=== PATIENT | male | born 1960 | race Caucasian/White ===

== ENCOUNTER 2016-06-18 10:15 | Inpatient (IN) | payer MEDICAID ==
[~2016-06-18] VITALS: Ht 175.3 cm; Wt 118.4 kg
[2016-06-18] MEDS ORDERED: SODIUM CHLORIDE 0.9% 1,000 ML IV ONE (10:27)
[2016-06-18] MEDS ORDERED: ASPirin 81 mg TAB PO ONE ×2 (10:30→15:15)
[2016-06-18] MEDS ORDERED: cloNIDine HCL 0.1 MG TAB PO ONE (11:00)
[2016-06-18] MEDS ORDERED: FUROSEMIDE 40 MG/4 ML VIAL IV ONE ×2 (11:00→15:30)
[2016-06-18 11:02] LABS: Basophils # (auto) 0 uL; Basophils % (auto) 0.3 % (0.0-2.0); Eosinophils # (auto) 0.2 uL; Eosinophils % (auto) 1.5 % (0.0-7.0); Hematocrit 47.5 % (41.0-53.0); Hemoglobin 15.9 g/dL (13.5-17.5); Lymphocytes # (auto) 2.3 uL; Lymphocytes % (auto) 15.3 % (10.0-50.0); Mean Corpuscular Hemoglobin 30.1 pg (28.0-32.0); Mean Corpuscular Hgb Conc. 33.4 g/dL (32.0-36.0); Mean Corpuscular Volume 90.2 fL (80.0-100.0); Mean Platelet Volume 9.3 fL (7.4-10.4); Monocytes # (auto) 0.8 uL; Monocytes % (auto) 5.5 % (0.0-12.0); Neutrophils # (auto) 11.7 uL; Neutrophils % (auto) 77.4 % (37.0-80.0); Platelet Count (auto) 386 10^3/uL (140-450); Red Cell Distribution Width 16.1 % (11.6-16.0); White Blood Cell 15.1 10^3/uL (4.4-10.8)
[2016-06-18 11:26] LABS: INR 0.98 (0.9-1.15); Partial Thromboplastin Time 29.9 sec (22.64-33.71); Prothrombin Time 10.1 sec (9.37-12.3)
[2016-06-18 11:54] LABS: Albumin 3.1 g/dL (3.4-5.0); Alkaline Phosphatase 72 U/L (45-117); Anion Gap 11 (5-15); Aspartate Aminotransferase 50 U/L (15-37); BUN/Creatinine Ratio 24.6; Bilirubin, Total 0.5 mg/dL (0.2-1.0); Blood Urea Nitrogen 32 mg/dL (7-18); Carbon Dioxide 24 mmol/L (21-32); Chloride 108 mmol/L (98-107); GFR African American 74 mL/min; GFR Non-African American 61 mL/min; Glucose 181 mg/dL (74-106); Potassium 4.4 mmol/L (3.5-5.1); Sodium 143 mmol/L (136-145); Total Protein 7.3 g/dL (6.4-8.2)
[2016-06-18 12:11] LABS: Urine Bilirubin Negative (Negative); Urine Blood 1+ /uL (Negative); Urine Color Yellow (Yellow); Urine Glucose 1+ mg/dL (Normal); Urine Hyaline Cast FEW /lpf (0 - 2); Urine Ketone Negative (Negative); Urine Nitrite Negative (Negative); Urine RBC 6 /hpf (0 - 3); Urine Squamous Epithelial Cell FEW /hpf (<5); Urine Urobilinogen Normal (Negative); Urine pH 5.5 (5.0-8.0)
[2016-06-18 12:33] LABS: B-Type Natriuretic Peptide 174.27 pg/mL (0-100)
[2016-06-18] MEDS ORDERED: LISINOPRIL 10 MG TAB PO ONE (15:15)
[2016-06-18] MEDS ORDERED: NITROGLYCERIN 0.4 MG SL TAB SL PRN (15:15)
[2016-06-18] MEDS ORDERED: DEXTROSE (50%) 50ML SYRG IV PRN (15:15)
[2016-06-18] MEDS ORDERED: MORPHINE SULF INJ 2 MG/ML SYRINGE 1ML IV PRN (15:15)
[2016-06-18] MEDS ORDERED: ceFAZolin 1GM/50ML D5W 50 ML IV ONE (15:30)
[2016-06-18] MEDS: InsuLIN REG 1unit/0.01ml Soln (100units/ml) SC SCH ×2 (16:41→22:00)
[2016-06-18] MEDS: ACCU-CHEK COMFORT CURVE STRIP VI SCH ×2 (16:44→22:00)
[2016-06-18 21:25] VITALS: BP 188/93
[2016-06-18 22:00] VITALS: BP 188/93
[2016-06-18] MEDS: ceFAZolin 1GM/50ML D5W 50 ML IV SCH (22:18)
[2016-06-18] MEDS: ATORVASTATIN 20 MG TAB PO SCH (22:18)
[2016-06-18] MEDS: CARVEDILOL 3.125 MG TAB PO SCH (22:19)
[2016-06-19] MEDS: LABETALOL HCL 5 MG/ML 4ML SYRINGE IV PRN ×5 (04:44→16:53)
[2016-06-19 05:30] VITALS: BP 177/85
[2016-06-19 05:37] LABS: Basophils # (auto) 0.1 uL; Basophils % (auto) 0.5 % (0.0-2.0); Eosinophils # (auto) 0.3 uL; Eosinophils % (auto) 2.4 % (0.0-7.0); Hematocrit 42.8 % (41.0-53.0); Hemoglobin 14.1 g/dL (13.5-17.5); Lymphocytes % (auto) 24.8 % (10.0-50.0); Mean Corpuscular Hemoglobin 29.9 pg (28.0-32.0); Mean Corpuscular Hgb Conc. 33.1 g/dL (32.0-36.0); Mean Corpuscular Volume 90.2 fL (80.0-100.0); Mean Platelet Volume 9.4 fL (7.4-10.4); Monocytes # (auto) 0.9 uL; Monocytes % (auto) 7.2 % (0.0-12.0); Neutrophils # (auto) 7.8 uL; Neutrophils % (auto) 65.1 % (37.0-80.0); Platelet Count (auto) 320 10^3/uL (140-450); Red Cell Distribution Width 16.3 % (11.6-16.0)
[2016-06-19 06:15] LABS: BUN/Creatinine Ratio 23.6; Calcium 8.7 mg/dL (8.5-10.1)
[2016-06-19] MEDS: ceFAZolin 1GM/50ML D5W 50 ML IV SCH ×3 (06:25→22:04)
[2016-06-19] MEDS: ACCU-CHEK COMFORT CURVE STRIP VI SCH ×4 (06:25→22:04)
[2016-06-19] MEDS: InsuLIN REG 1unit/0.01ml Soln (100units/ml) SC SCH ×4 (06:28→23:11)
[2016-06-19] MEDS: FUROSEMIDE 40 MG/4 ML VIAL IV SCH (08:45)
[2016-06-19] MEDS: LISINOPRIL 10 MG TAB PO SCH (08:46)
[2016-06-19] MEDS: ASPirin 81 mg TAB PO SCH (08:46)
[2016-06-19] MEDS: POTASSIUM CHL 20 Meq TABLET PO SCH (08:46)
[2016-06-19] MEDS: CARVEDILOL 3.125 MG TAB PO SCH ×2 (08:47→22:04)
[2016-06-19 09:00] VITALS: BP 181/95
[2016-06-19] MEDS ORDERED: hydrALAZINE HCL 20 MG/ML VL IV PRN (11:00)
[2016-06-19] MEDS: NIFEdipine ER 30 MG TAB PO SCH (11:32)
[2016-06-19 13:00] VITALS: BP 179/95
[2016-06-19] MEDS ORDERED: cloNIDine HCL 0.1 MG TAB PO PRN (15:30)
[2016-06-19 17:00] VITALS: BP 174/83
[2016-06-19 18:44] VITALS: BP 156/85
[2016-06-19 21:30] VITALS: BP 128/69
[2016-06-19] MEDS ORDERED: ONDANSETRON HCL 4 MG/2 ML VIAL IV PRN (22:00)
[2016-06-19] MEDS: HYDROcodone-ACET 5/325MG TAB PO PRN (22:02)
[2016-06-19] MEDS: ATORVASTATIN 20 MG TAB PO SCH (22:04)
[2016-06-20 04:00] VITALS: BP 147/78
[2016-06-20] MEDS: ceFAZolin 1GM/50ML D5W 50 ML IV SCH (05:50)
[2016-06-20] MEDS: InsuLIN REG 1unit/0.01ml Soln (100units/ml) SC SCH ×2 (07:01→12:17)
[2016-06-20] MEDS: ACCU-CHEK COMFORT CURVE STRIP VI SCH ×2 (07:01→12:17)
[2016-06-20] MEDS: HYDROcodone-ACET 5/325MG TAB PO PRN (07:04)
[2016-06-20 08:00] VITALS: BP 154/80
[2016-06-20 09:00] VITALS: BP 154/80
[2016-06-20] MEDS: FUROSEMIDE 40 MG/4 ML VIAL IV SCH (09:30)
[2016-06-20] MEDS: NIFEdipine ER 30 MG TAB PO SCH (09:30)
[2016-06-20] MEDS: POTASSIUM CHL 20 Meq TABLET PO SCH (09:30)
[2016-06-20] MEDS: CARVEDILOL 3.125 MG TAB PO SCH (09:31)
[2016-06-20] MEDS: LISINOPRIL 10 MG TAB PO SCH (09:31)
[2016-06-20] MEDS: ASPirin 81 mg TAB PO SCH (09:31)
[2016-06-20] MEDS ORDERED: NIFEdipine 10 MG CAP PO ONE (15:00)
[2016-06-20 15:12] VITALS: BP 131/79
[2016-06-20] MEDS ORDERED: NIFEdipine ER 30 MG TAB PO ONE (15:15)
[2016-06-21] MEDS ORDERED: NIFEdipine ER 30 MG TAB PO SCH (10:00)
== END 2016-06-20 16:00 | disposition home or self-care (01) | DRG 194 ==
LOC: ER 10:15 → TELE 10:16 → TELE-CENTR 21:17
PROVIDERS: ADMIT Internal Medicine; ATTEND Internal Medicine
DX: I13.0 Hypertensive heart and chronic kidney disease with heart failure and stage 1 through stage 4 chronic kidney disease, or unspecified chronic kidney disease (principal); J96.00 Acute respiratory failure, unspecified whether with hypoxia or hypercapnia; E11.22 Type 2 diabetes mellitus with diabetic chronic kidney disease; E66.01 Morbid (severe) obesity due to excess calories; N18.2 Chronic kidney disease, stage 2 (mild); H54.8 Legal blindness, as defined in USA; E78.5 Hyperlipidemia, unspecified; E11.65 Type 2 diabetes mellitus with hyperglycemia; I50.43 Acute on chronic combined systolic (congestive) and diastolic (congestive) heart failure; Z82.49 Family history of ischemic heart disease and other diseases of the circulatory system; Z68.38 Body mass index [BMI] 38.0-38.9, adult; Z87.891 Personal history of nicotine dependence; Z71.89 Other specified counseling
CPT/HCPCS: 36415; 71010; 80048; 80053; 80061; 81001; 82962; 83036; 83880; 84484; 85025; 85610; 85730; 93005; 93306; 93970; 96365; 96375; J0690; J1815; J3490

== ENCOUNTER 2017-01-06 15:54 | Emergency (ER) | payer MEDICAID ==
[~2017-01-06] VITALS: Ht 177.8 cm; Wt 99.8 kg
[2017-01-06] MEDS: cloNIDine HCL 0.1 MG TAB PO ONE (16:27)
[2017-01-06] MEDS: ALPRAZolam 0.5 MG TAB PO ONE (16:48)
[2017-01-06 17:23] LABS: Basophils # (auto) 0 uL; Basophils % (auto) 0.3 % (0.0-2.0); Eosinophils # (auto) 0.1 uL; Eosinophils % (auto) 0.9 % (0.0-7.0); Hematocrit 36.7 % (41.0-53.0); Hemoglobin 12.1 g/dL (13.5-17.5); Lymphocytes # (auto) 1.7 uL; Lymphocytes % (auto) 14.9 % (10.0-50.0); Mean Corpuscular Hemoglobin 29.2 pg (28.0-32.0); Mean Corpuscular Hgb Conc. 32.9 g/dL (32.0-36.0); Mean Corpuscular Volume 88.7 fL (80.0-100.0); Mean Platelet Volume 8.9 fL (6.9-10.8); Monocytes # (auto) 0.6 uL; Monocytes % (auto) 5.8 % (0.0-12.0); Neutrophils # (auto) 8.7 uL; Neutrophils % (auto) 78.1 % (37.0-80.0); Platelet Count (auto) 239 10^3/uL (140-450); Red Cell Distribution Width 16.1 % (11.8-14.3); White Blood Cell 11.1 10^3/uL (4.4-10.8)
[2017-01-06 17:50] VITALS: BP 138/69
[2017-01-06 17:51] LABS: Albumin 3.4 g/dL (3.4-5.0); BUN/Creatinine Ratio 18.5; Calcium 8.2 mg/dL (8.5-10.1); Potassium 4.3 mmol/L (3.5-5.1)
[2017-01-06 17:55] LABS: Bilirubin, Total 0.8 mg/dL (0.2-1.0); Total Protein 6.6 g/dL (6.4-8.2)
== END 2017-01-06 19:28 | disposition home or self-care (01) ==
LOC: ER 15:54
DX: F41.0 Panic disorder [episodic paroxysmal anxiety] (principal); F41.9 Anxiety disorder, unspecified; I10 Essential (primary) hypertension
CPT/HCPCS: 36415; 80053; 82962; 84484; 85025; 93005

== ENCOUNTER 2017-01-31 16:00 | Emergency (ER) | payer MEDICAID ==
[~2017-01-31] VITALS: Ht 175.3 cm; Wt 90.7 kg
[2017-01-31 16:14] VITALS: BP 183/81
== END 2017-01-31 23:11 | disposition left against medical advice (07) ==
LOC: ER 16:02
DX: R21 Rash and other nonspecific skin eruption (principal); Z53.21 Procedure and treatment not carried out due to patient leaving prior to being seen by health care provider

== ENCOUNTER 2017-06-21 09:49 | Inpatient (IN) | payer MEDICAID ==
[~2017-06-21] VITALS: Ht 175.3 cm; Wt 91.8 kg
[2017-06-21] MEDS ORDERED: cloNIDine HCL 0.1 MG TAB ONE (10:06)
[2017-06-21] MEDS ORDERED: HYDROcodone-ACET 10/325MG TAB PO ONE (10:15)
[2017-06-21] MEDS ORDERED: cloNIDine HCL 0.1 MG TAB PO ONE (10:15)
[2017-06-21 10:25] LABS: Basophils # (auto) 0 uL; Basophils % (auto) 0.3 % (0.0-2.0); Eosinophils # (auto) 0.1 uL; Eosinophils % (auto) 0.5 % (0.0-7.0); Hematocrit 37.5 % (41.0-53.0); Hemoglobin 12.3 g/dL (13.5-17.5); Lymphocytes # (auto) 1.3 uL; Lymphocytes % (auto) 10.9 % (10.0-50.0); Mean Corpuscular Hemoglobin 30.1 pg (28.0-32.0); Mean Corpuscular Hgb Conc. 32.9 g/dL (32.0-36.0); Mean Corpuscular Volume 91.5 fL (80.0-100.0); Monocytes # (auto) 0.7 uL; Monocytes % (auto) 6.1 % (0.0-12.0); Neutrophils # (auto) 9.5 uL; Neutrophils % (auto) 82.2 % (37.0-80.0); Platelet Count (auto) 281 10^3/uL (140-450); Red Cell Distribution Width 14.9 % (11.8-14.3); White Blood Cell 11.6 10^3/uL (4.4-10.8)
[2017-06-21 10:46] LABS: Albumin 2.4 g/dL (3.4-5.0); BUN/Creatinine Ratio 19.3; Bilirubin, Total 0.4 mg/dL (0.2-1.0); Magnesium 2.7 mg/dL (1.6-2.6); Potassium 4.3 mmol/L (3.5-5.1)
[2017-06-21 10:48] LABS: INR 0.9 (0.9-1.15); Partial Thromboplastin Time 29.5 sec (22.64-33.71); Prothrombin Time 9.8 sec (9.37-12.3)
[2017-06-21] MEDS ORDERED: FUROSEMIDE 40 MG/4 ML VIAL IV ONE (11:15)
[2017-06-21] MEDS ORDERED: AZITHROMYCIN 500MG/ 250ML 250 ML IV ONE (11:30)
[2017-06-21] MEDS ORDERED: cefTRIAXone 1GM/10ml IVPUSH 10 ML IV ONE (11:30)
[2017-06-21] MEDS ORDERED: PROMETHAZINE HCL 25 MG/ML 1ML IV PRN (12:30)
[2017-06-21] MEDS ORDERED: TEMAZEPAM 15 MG CAP PO PRN (12:30)
[2017-06-21] MEDS ORDERED: DEXTROSE (50%) 50ML SYRG IV PRN (12:30)
[2017-06-21] MEDS ORDERED: ALBUTEROL SULF 2.5 MG/0.5ML(0.5%) NEB SOLN NEB PRN (12:30)
[2017-06-21] MEDS ORDERED: LACTULOSE 20Gm/30ML SOLN PO PRN (12:30)
[2017-06-21] MEDS ORDERED: LORazepam 0.5 MG TAB PO PRN (12:30)
[2017-06-21] MEDS ORDERED: ACETAMINOPHEN 500 MG TAB PO PRN (12:30)
[2017-06-21] MEDS ORDERED: NITROGLYCERIN 0.4 MG SL TAB SL PRN (12:30)
[2017-06-21] MEDS ORDERED: MORPHINE SULFATE 4 MG/ML SYR/VIAL IV PRN ×2 (12:30)
[2017-06-21] MEDS ORDERED: OSELTAMIVIR 75 MG CAP PO ONE (12:30)
[2017-06-21] MEDS: ISOSORBIDE MONONITRATE 60 MG TAB PO SCH (13:53)
[2017-06-21] MEDS: CARVEDILOL 3.125 MG TAB PO SCH ×2 (13:53→22:00)
[2017-06-21] MEDS: ASPirin 81 mg TAB PO SCH (13:53)
[2017-06-21] MEDS: ENOXAPARIN SOD 40 MG/0.4 ML SYRINGE SC SCH (13:54)
[2017-06-21] MEDS: ENALAPRIL MALEATE 10 MG TAB PO SCH (13:54)
[2017-06-21] MEDS: SODIUM CHLOR 0.9% PF (SALINE LOCK) 10ML VIAL IV SCH ×2 (13:54→22:29)
[2017-06-21] MEDS ORDERED: SODIUM CHLOR 0.9% PF (SALINE LOCK) 10ML VIAL IV SCH (14:00)
[2017-06-21 14:09] LABS: Urine Bacteria NONE SEEN /hpf (None Seen); Urine Blood Negative /uL (Negative); Urine Hyaline Cast FEW /lpf (0 - 2); Urine Mucus FEW (None Seen); Urine Specific Gravity 1.009 (1.001-1.035); Urine WBC 2 /hpf (0 - 3)
[2017-06-21 14:27] LABS: Alcohol, Urine < 3.0 mg/dL (0-5); Amphetamine Screen, Urine NEGATIVE (NEGATIVE); Barbiturate Scree,Urine NEGATIVE (NEGATIVE); Benzodiazephine Screen, Urine NEGATIVE (NEGATIVE); Cannabinoid Screen, Urine NEGATIVE (NEGATIVE); Cocaine Screen, Urine NEGATIVE (NEGATIVE); Opiate Scree,Urine NEGATIVE (NEGATIVE); Phencyclidine Screen, Urine NEGATIVE (NEGATIVE)
[2017-06-21] MEDS: ENALAPRILAT 1.25 MG/ML-1ML VIAL IV PRN (14:36)
[2017-06-21] MEDS: InsuLIN REG 1unit/0.01ml Soln (100units/ml) SC SCH ×2 (17:00→22:00)
[2017-06-21 17:02] VITALS: BP 113/82
[2017-06-21] MEDS: ACCU-CHEK COMFORT CURVE STRIP VI SCH ×2 (18:24→22:28)
[2017-06-21] MEDS ORDERED: HYDR10TA26 PO (18:47)
[2017-06-21] MEDS ORDERED: LOSA25TA9 PO (18:47)
[2017-06-21] MEDS ORDERED: INFLUENZA QUAD 2017-2018 0.5 ML SYRG IM ONE (19:00)
[2017-06-21] MEDS ORDERED: PNEUMOCOCCAL VACC POLYS 25 MCG/0.5 ML VIAL IM ONE (19:00)
[2017-06-21] MEDS: IPRATROPIUM BROM 0.5 MG/2.5ML INH SOL NEB SCH (19:26)
[2017-06-21] MEDS ORDERED: FURO20TA PO (19:26)
[2017-06-21] MEDS: ALBUTEROL SULF 2.5 MG/0.5ML(0.5%) NEB SOLN NEB SCH (19:26)
[2017-06-21 21:11] VITALS: BP 113/82
[2017-06-21 22:00] VITALS: BP 157/82
[2017-06-21] MEDS ORDERED: OSELTAMIVIR 30 MG CAP PO SCH (22:00)
[2017-06-22] MEDS: ENALAPRILAT 1.25 MG/ML-1ML VIAL IV PRN ×3 (04:58→12:07)
[2017-06-22 05:00] VITALS: BP 193/100
[2017-06-22] MEDS: IPRATROPIUM BROM 0.5 MG/2.5ML INH SOL NEB SCH ×4 (06:06→18:16)
[2017-06-22] MEDS: ALBUTEROL SULF 2.5 MG/0.5ML(0.5%) NEB SOLN NEB SCH ×4 (06:07→18:16)
[2017-06-22] MEDS: InsuLIN REG 1unit/0.01ml Soln (100units/ml) SC SCH ×4 (06:23→22:00)
[2017-06-22] MEDS: HYDROcodone-ACET 5/325MG TAB PO PRN ×2 (06:23→15:57)
[2017-06-22] MEDS: SODIUM CHLOR 0.9% PF (SALINE LOCK) 10ML VIAL IV SCH ×3 (06:23→23:32)
[2017-06-22] MEDS: ACCU-CHEK COMFORT CURVE STRIP VI SCH ×4 (06:24→22:00)
[2017-06-22 07:01] LABS: Basophils # (auto) 0 uL; Basophils % (auto) 0.3 % (0.0-2.0); Eosinophils # (auto) 0.1 uL; Eosinophils % (auto) 1.1 % (0.0-7.0); Hematocrit 31.7 % (41.0-53.0); Hemoglobin 10.6 g/dL (13.5-17.5); Lymphocytes # (auto) 1.2 uL; Lymphocytes % (auto) 14.1 % (10.0-50.0); Mean Corpuscular Hemoglobin 30.7 pg (28.0-32.0); Mean Corpuscular Hgb Conc. 33.4 g/dL (32.0-36.0); Mean Corpuscular Volume 91.9 fL (80.0-100.0); Monocytes # (auto) 0.7 uL; Monocytes % (auto) 8.1 % (0.0-12.0); Neutrophils # (auto) 6.5 uL; Neutrophils % (auto) 76.4 % (37.0-80.0); Platelet Count (auto) 241 10^3/uL (140-450); Red Blood Cells 3.45 10^6/uL (4.5-5.90); Red Cell Distribution Width 14.9 % (11.8-14.3); White Blood Cell 8.5 10^3/uL (4.4-10.8)
[2017-06-22 07:24] LABS: Bilirubin, Total 0.3 mg/dL (0.2-1.0); Calcium 8.3 mg/dL (8.5-10.1); Potassium 4.5 mmol/L (3.5-5.1); Total Protein 5.4 g/dL (6.4-8.2)
[2017-06-22 08:00] VITALS: BP 188/99
[2017-06-22 08:56] VITALS: BP 188/99
[2017-06-22] MEDS: cefTRIAXone 1GM/10ml IVPUSH 10 ML IV SCH (09:10)
[2017-06-22] MEDS: POTASSIUM CHL 20 Meq TABLET PO SCH (09:11)
[2017-06-22] MEDS: ENOXAPARIN SOD 40 MG/0.4 ML SYRINGE SC SCH (09:11)
[2017-06-22] MEDS: PANTOPRAZOLE 40 MG TAB PO SCH (09:12)
[2017-06-22] MEDS: ENALAPRIL MALEATE 10 MG TAB PO SCH (09:12)
[2017-06-22] MEDS: ASPirin 81 mg TAB PO SCH (09:13)
[2017-06-22] MEDS: ISOSORBIDE MONONITRATE 60 MG TAB PO SCH (09:14)
[2017-06-22] MEDS: AZITHROMYCIN 500MG/ 250ML 250 ML IV SCH (10:00)
[2017-06-22] MEDS ORDERED: FUROSEMIDE 40 MG/4 ML VIAL IV SCH (10:00)
[2017-06-22] MEDS: CARVEDILOL 3.125 MG TAB PO SCH ×2 (10:00→23:32)
[2017-06-22 13:00] VITALS: BP 130/93
[2017-06-22] MEDS ORDERED: HCTZ 25 MG TAB PO SCH (15:00)
[2017-06-22] MEDS: NIFEdipine ER 30 MG TAB PO SCH (15:00)
[2017-06-22] MEDS ORDERED: hydrALAZINE HCL 20 MG/ML VL IV PRN (15:00)
[2017-06-22] MEDS ORDERED: hydrALAZINE HCL 25 MG TAB PO SCH (15:00)
[2017-06-22 16:00] VITALS: BP 210/111
[2017-06-22] MEDS ORDERED: FUROSEMIDE 100 MG/10ML VIAL IV ONE (17:30)
[2017-06-22] MEDS: MINOXIDIL 2.5 MG TAB PO SCH ×2 (20:28→23:24)
[2017-06-22 22:03] VITALS: BP 156/81
[2017-06-23] MEDS: IPRATROPIUM BROM 0.5 MG/2.5ML INH SOL NEB SCH ×4 (00:13→18:44)
[2017-06-23] MEDS: ALBUTEROL SULF 2.5 MG/0.5ML(0.5%) NEB SOLN NEB SCH ×4 (00:14→18:44)
[2017-06-23 05:54] VITALS: BP 140/73
[2017-06-23 06:02] LABS: Basophils # (auto) 0 uL; Basophils % (auto) 0.4 % (0.0-2.0); Eosinophils # (auto) 0.2 uL; Eosinophils % (auto) 1.6 % (0.0-7.0); Hematocrit 31.6 % (41.0-53.0); Hemoglobin 10.6 g/dL (13.5-17.5); Lymphocytes # (auto) 1.2 uL; Lymphocytes % (auto) 12.1 % (10.0-50.0); Mean Corpuscular Hemoglobin 30.7 pg (28.0-32.0); Mean Corpuscular Hgb Conc. 33.7 g/dL (32.0-36.0); Mean Corpuscular Volume 91.1 fL (80.0-100.0); Monocytes # (auto) 0.8 uL; Monocytes % (auto) 7.9 % (0.0-12.0); Neutrophils # (auto) 7.9 uL; Platelet Count (auto) 243 10^3/uL (140-450); Red Blood Cells 3.47 10^6/uL (4.5-5.90); Red Cell Distribution Width 14.8 % (11.8-14.3); White Blood Cell 10.1 10^3/uL (4.4-10.8)
[2017-06-23] MEDS: MINOXIDIL 2.5 MG TAB PO SCH ×3 (06:18→22:20)
[2017-06-23 06:21] LABS: BUN/Creatinine Ratio 20.4; Calcium 7.9 mg/dL (8.5-10.1); Phosphorus 5.3 mg/dL (2.5-4.90); Potassium 4.2 mmol/L (3.5-5.1); Uric Acid 6.2 mg/dL (3.5-7.2)
[2017-06-23] MEDS: HYDROcodone-ACET 5/325MG TAB PO PRN (06:57)
[2017-06-23] MEDS: ACCU-CHEK COMFORT CURVE STRIP VI SCH ×4 (06:58→22:20)
[2017-06-23] MEDS: InsuLIN REG 1unit/0.01ml Soln (100units/ml) SC SCH ×4 (06:58→22:00)
[2017-06-23] MEDS: SODIUM CHLOR 0.9% PF (SALINE LOCK) 10ML VIAL IV SCH ×3 (06:58→22:19)
[2017-06-23 07:49] VITALS: BP 146/77
[2017-06-23 08:00] VITALS: BP 146/77
[2017-06-23] MEDS: NIFEdipine ER 30 MG TAB PO SCH (09:46)
[2017-06-23] MEDS: ASPirin 81 mg TAB PO SCH (09:46)
[2017-06-23] MEDS: PANTOPRAZOLE 40 MG TAB PO SCH (09:47)
[2017-06-23] MEDS: ISOSORBIDE MONONITRATE 60 MG TAB PO SCH (09:47)
[2017-06-23] MEDS: ENOXAPARIN SOD 40 MG/0.4 ML SYRINGE SC SCH (09:50)
[2017-06-23] MEDS: CARVEDILOL 3.125 MG TAB PO SCH ×2 (09:50→22:18)
[2017-06-23] MEDS: cefTRIAXone 1GM/10ml IVPUSH 10 ML IV SCH (09:51)
[2017-06-23] MEDS: AZITHROMYCIN 500MG/ 250ML 250 ML IV SCH (09:51)
[2017-06-23] MEDS: POTASSIUM CHL 20 Meq TABLET PO SCH (10:00)
[2017-06-23 11:39] VITALS: BP 120/66
[2017-06-23] MEDS ORDERED: FUROSEMIDE 100 MG/10ML VIAL IV ONE (15:45)
[2017-06-23 16:41] VITALS: BP 130/64
[2017-06-23 22:00] VITALS: BP 142/75
[2017-06-23] MEDS: predniSONE 20 MG TAB PO SCH (22:17)
[2017-06-24] MEDS: IPRATROPIUM BROM 0.5 MG/2.5ML INH SOL NEB SCH ×4 (00:53→18:00)
[2017-06-24] MEDS: ALBUTEROL SULF 2.5 MG/0.5ML(0.5%) NEB SOLN NEB SCH ×4 (00:53→18:00)
[2017-06-24 05:00] VITALS: BP 141/75
[2017-06-24] MEDS: MINOXIDIL 2.5 MG TAB PO SCH ×2 (06:21→14:39)
[2017-06-24] MEDS: HYDROcodone-ACET 5/325MG TAB PO PRN ×3 (06:22→18:40)
[2017-06-24] MEDS: InsuLIN REG 1unit/0.01ml Soln (100units/ml) SC SCH ×3 (06:38→17:00)
[2017-06-24] MEDS: SODIUM CHLOR 0.9% PF (SALINE LOCK) 10ML VIAL IV SCH ×2 (06:38→14:00)
[2017-06-24] MEDS: ACCU-CHEK COMFORT CURVE STRIP VI SCH ×3 (06:38→17:25)
[2017-06-24 07:30] LABS: BUN/Creatinine Ratio 18.9; Calcium 8.4 mg/dL (8.5-10.1); Potassium 4.9 mmol/L (3.5-5.1)
[2017-06-24 09:00] VITALS: BP 140/70
[2017-06-24] MEDS: cefTRIAXone 1GM/10ml IVPUSH 10 ML IV SCH (09:14)
[2017-06-24] MEDS ORDERED: PNEUMOCOCCAL VACC POLYS 25 MCG/0.5 ML VIAL IM ONE (09:30)
[2017-06-24] MEDS ORDERED: INFLUENZA QUAD 2017-2018 0.5 ML SYRG IM ONE (09:30)
[2017-06-24] MEDS: AZITHROMYCIN 500MG/ 250ML 250 ML IV SCH (09:38)
[2017-06-24] MEDS: PANTOPRAZOLE 40 MG TAB PO SCH (09:38)
[2017-06-24] MEDS: ASPirin 81 mg TAB PO SCH (09:38)
[2017-06-24] MEDS: predniSONE 20 MG TAB PO SCH (09:38)
[2017-06-24] MEDS: ENOXAPARIN SOD 40 MG/0.4 ML SYRINGE SC SCH (09:38)
[2017-06-24] MEDS: NIFEdipine ER 30 MG TAB PO SCH (09:43)
[2017-06-24] MEDS: ISOSORBIDE MONONITRATE 60 MG TAB PO SCH (09:44)
[2017-06-24] MEDS ORDERED: CARVEDILOL 12.5 MG TAB PO SCH (10:00)
[2017-06-24] MEDS ORDERED: MIN25T PO (12:03)
[2017-06-24] MEDS ORDERED: ASPI81CH43 PO (12:03)
[2017-06-24] MEDS ORDERED: ISO60SRT PO (12:03)
[2017-06-24] MEDS ORDERED: DOXY-216 PO (12:03)
[2017-06-24] MEDS ORDERED: NIF30XLT PO (12:03)
[2017-06-24] MEDS ORDERED: CAR125T PO (12:03)
[2017-06-24 12:32] VITALS: BP 125/67
[2017-06-24 16:05] VITALS: BP 125/67
[2017-06-24 16:45] VITALS: BP 139/72
[2017-07-22] MEDS ORDERED: HYDR25TA35 PO (12:11)
[2017-07-22] MEDS ORDERED: CALC667C5 PO (12:11)
[2017-07-22] MEDS ORDERED: FURO40TA4 PO (12:11)
[2017-07-22] MEDS ORDERED: METO5TAB56 PO (12:11)
[2017-07-22] MEDS ORDERED: NIF30XLT PO (12:11)
[2017-07-22] MEDS ORDERED: HYDR-531 PO (12:47)
[2017-07-22] MEDS ORDERED: PERCOT PO (12:48)
== END 2017-06-24 19:35 | disposition home or self-care (01) | DRG 469 ==
LOC: ER 09:49 → TELE 09:50 → TELE-EAST 15:06
PROVIDERS: ADMIT Internal Medicine; ATTEND Hospitalist
DX: N17.9 Acute kidney failure, unspecified (principal); E43 Unspecified severe protein-calorie malnutrition; I50.33 Acute on chronic diastolic (congestive) heart failure; J18.1 Lobar pneumonia, unspecified organism; I13.0 Hypertensive heart and chronic kidney disease with heart failure and stage 1 through stage 4 chronic kidney disease, or unspecified chronic kidney disease; J18.9 Pneumonia, unspecified organism; E11.21 Type 2 diabetes mellitus with diabetic nephropathy; N18.3 Chronic kidney disease, stage 3 (moderate); E11.22 Type 2 diabetes mellitus with diabetic chronic kidney disease; H54.8 Legal blindness, as defined in USA; I16.0 Hypertensive urgency; K59.00 Constipation, unspecified; E66.01 Morbid (severe) obesity due to excess calories; F41.9 Anxiety disorder, unspecified; G47.00 Insomnia, unspecified; N43.3 Hydrocele, unspecified; N50.89 Other specified disorders of the male genital organs; R09.02 Hypoxemia; Z82.49 Family history of ischemic heart disease and other diseases of the circulatory system; Z23 Encounter for immunization; Z68.29 Body mass index [BMI] 29.0-29.9, adult; Z83.3 Family history of diabetes mellitus; Z79.899 Other long term (current) drug therapy
CPT/HCPCS: 36415; 36600; 71045; 71046; 76775; 76870; 80048; 80053; 80061; 80307; 81001; 82306; 82550; 82805; 82962; 83036; 83735; 83880; 84100; 84443; 84484; 84550; 85025; 85379; 85610; 85652; 85730; 86141; 87040; 87804; 93005; 94640; 96374; 96375; 99291; G9035; J1815